=== PATIENT | female | born 1985 | race Caucasian/White ===

== ENCOUNTER 2020-11-04 12:02 | Outpatient (NON) | payer BC, SELFPAY ==
[2020-11-04 23:40] LABS: SARS-CoV-2 RNA PCR Negative
== END 2020-11-04 12:03 ==
LOC: ANHCOVIDDT 12:04
PROVIDERS: Visit Provider Physician Assistant Medical
DX: R68.89 Other general symptoms and signs (principal); Z20.828 Contact with and (suspected) exposure to other viral communicable diseases
CPT/HCPCS: 87635; C9803; U0003

== ENCOUNTER → 2022-01-17 09:43 | Outpatient (CLI) | payer BC, SELFPAY ==
--- NOTE | ~2022-01-17 | XR_ITS ---
EXAMINATION: XR lumbar spine min 4V DATE: 01/17/2022 10:07 INDICATION: Left hip pain TECHNIQUE: Anteroposterior, lateral, and bilateral oblique views of the lumbar spine, and cone-down l ateral view of the lumbosacral junction were obtained. COMPARISON: None. FINDINGS: There is no fracture, dislocation, or subluxation. Vertebral body alignment is normal. The intervertebral disc spaces are maintained. There is mild anterior wedging of the L4 vertebral body. 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 IMPRESSION: 1. Mild anterior wedging of the L4 vertebral body, likely physiologic. Reviewed, dictated and finalized at location B. SEWING MACHINE OPERATOR
--- NOTE | ~2022-01-17 | XR_ITS ---
EXAMINATION: XR hip LT min 2V DATE: 01/17/2022 10:07 INDICATION: Left hip pain. TECHNIQUE: 2 views of left hip were obtained. COMPARISON: None. FINDINGS: Bone alignment is normal. No fracture. Left hip joint space is normal. IMPRESSION: 1. Normal left hip. Reviewed, dictated and finalized at location A. IFIED REGISTERED NURSE PRACTITIONER IMPRESSION: 1. Normal left hip.
== END ==
PROVIDERS: Visit Provider Chiropractor
DX: M25.552 Pain in left hip (principal); M48.56XA Collapsed vertebra, not elsewhere classified, lumbar region, initial encounter for fracture
CPT/HCPCS: 72110; 73502

== ENCOUNTER 2025-03-29 07:11 | Outpatient (CLI) | payer BC, SELFPAY ==
--- NOTE | ~2025-03-29 | US_ITS ---
Abdominal Sonogram: Real-time sonographic imaging of the abdomen was performed. Clinical History: Abdominal pain Findings: The liver appears normal with no evidence of mass lesion or bile duct dilatation. Main por soniya vein demonstrates normal direction of flow. The spleen is normal in size without evidence of foca l lesion. The gallbladder is well distended, and appears normal with no evidence of gallstone or wal l thickening. The common bile duct measures 4 mm. The visualized pancreas, aorta, and IVC are unrema rkable. The right kidney measures 10.2 cm in length and the left kidney measures 10.9 cm. There is no hydronephrosis or renal calculus. Impression: Unremarkable abdominal ultrasound. Reviewed, dictated and finalized at location . Impression: Unremarkable abdominal ultrasound.
--- NOTE | ~2025-03-29 | US_ITS ---
Pelvic ultrasound. Clinical History: Pelvic pain Technique: Realtime transabdominal and transvaginal scanning of the pelvis was performed. Color flow Doppler and Doppler spectral analysis were performed. Findings: The uterus is retroverted.. The endometrial stripe has a thickness of 5 mm. No focal mass is identified. The right ovary measures 2.7 x 1.7 x 1.8 cm. No significant right ovarian or adnexal mass is seen. The left ovary measures 2.1 x 2.5 x 1.5 cm. No significant left ovarian or adnexal mass is seen. There is no evidence of free fluid in the cul de sac. Impression: Unremarkable pelvic ultrasound. Reviewed, dictated and finalized at location . Impression: Unremarkable pelvic ultrasound.
== END 2025-03-29 07:12 | disposition home or self-care (01) ==
LOC: MICIMG 07:12
PROVIDERS: PCP Family Medicine; Visit Provider Family Medicine
DX: R10.30 Lower abdominal pain, unspecified (principal)
CPT/HCPCS: 76700; 76830; 76856